=== PATIENT | male | born 1995 | race African-American/Black ===

== ENCOUNTER 2017-10-15 08:40 | Emergency (ER) | payer SELFPAY ==
[2017-10-15] MEDS ORDERED: Albuterol/Ipratropium 3.0-0.5 MG/3 ML Neb Soln ONE (09:01)
[2017-10-15] MEDS ORDERED: Albuterol/Ipratropium 3.0-0.5 MG/3 ML Neb Soln NEB ONE (09:03)
[2017-10-15] MEDS ORDERED: methylPREDNISolone Sodium Succinate 125 MG/2 ML SDV IM ONE (09:03)
--- NOTE | 2017-10-15 09:13 | EDM.PDOC ---
ED HPI GENERAL MEDICAL PROBLEM - General Chief Complaint: Asthma Stated Complaint: ASTHMA ATTACK Time Seen by Provider: 10/15/17 09:03 Source of Information: Reports: Patient, RN Notes Reviewed History Limitations: Reports: No Limitations - History of Present Illness INITIAL COMMENTS - FREE TEXT/NARRATIVE: 22-year-old gentleman presents to the emergency department today complaint of difficulty breathing, he has a known history of asthma however he has not used his inhaler for a couple of days he is up here working this morning he awoke feeling very short of breath and wheezing Chest Pain Score (Numeric/FACES): 8 - Related Data Allergies Allergy/AdvReac Type Severity Reaction Status Date / Time No Known Allergies Allergy Verified 10/15/17 08:55 Home Meds: Home Meds Albuterol [Ventolin HFA] 1 puff INH ASDIRECTED 10/15/17 [History] Past Medical History Respiratory History: Reports: Asthma Social & Family History - Tobacco Use Smoking Status *Q: Never Smoker - Recreational Drug Use Recreational Drug Use: No ED ROS GENERAL - Review of Systems Review Of Systems: See Below Constitutional: Reports: No Symptoms HEENT: Reports: No Symptoms Respiratory: Reports: Shortness of Breath, Wheezing Cardiovascular: Reports: No Symptoms GI/Abdominal: Reports: No Symptoms ED EXAM, GENERAL - Physical Exam Exam: See Below Exam Limited By: No Limitations General Appearance: Alert, Mild Distress Head: Atraumatic, Normocephalic Neck: Normal Inspection, Supple, Non-Tender, Full Range of Motion Respiratory/Chest: Respiratory Distress (Tripoding), Wheezing, Accessory Muscle Use, Retractions Cardiovascular: No Murmur, Tachycardia Course - Vital Signs Last Recorded V/S: Last Vital Signs Temp 94.6 F L 10/15/17 08:54 Pulse 97 10/15/17 09:19 Resp 22 H 10/15/17 08:54 BP 140/79 10/15/17 08:54 Pulse Ox 95 10/15/17 09:19 - Orders/Labs/Meds Orders: Active Orders 24 hr Category Date Time Status RT Aerosol Therapy [RC] ASDIRECTED Care 10/15/17 09:03 Active Meds: Medications Discontinued Medications Generic Name Dose Route Start Last Admin Trade Name Freq PRN Reason Stop Dose Admin Albuterol/Ipratropium 3 ml 10/15/17 09:03 08/17/18 09:02 Duoneb 3.0-0.5 Mg/3 Ml NEB 10/15/17 09:04 3 ml ONETIME ONE Administration Albuterol/Ipratropium Confirm 10/15/17 09:01 10/15/17 09:05 Duoneb 3.0-0.5 Mg/3 Ml Administered 10/15/17 09:02 Not Given Dose 3 ml .ROUTE .STK-MED ONE Methylprednisolone Sodium Succinate 125 mg 10/15/17 09:03 10/15/17 09:16 Solu-Medrol IM 10/15/17 09:04 125 mg ONETIME ONE Administration Departure - Departure Time of Disposition: 09:36 Disposition: Home, Self-Care 01 Condition: Good Clinical Impression: Mild intermittent asthma with exacerbation - Discharge Information Referrals: PCP,None [Primary Care Provider] - Forms: ED Department Discharge Additional Instructions: Take full course of prednisone start tomorrow, continue to use your albuterol inhaler as needed every 2-4 hours follow-up primary care upon return home - My Orders Last 24 Hours: My Active Orders 10/15/17 09:03 RT Aerosol Therapy [RC] ASDIRECTED - Assessment/Plan Last 24 Hours: My Active Orders 10/15/17 09:03 RT Aerosol Therapy [RC] ASDIRECTED Plan: Assessment Acuity = acute Site and laterality = mild intermittent asthma exacerbation Etiology = unknown etiology Manifestations = wheezing Location of injury = Home Lab values = none Plan He had good improvement with Solu-Medrol and DuoNeb provided in emergency Department discharge home on prednisone 20 mg once a day for 5 days refill of his albuterol inhaler 1-2 puffs every 4 hours when necessary he will follow-up with his primary care upon return home This note was dictated using [employer] voice recognition software please call with any questions on syntax or grammar.
== END 2017-10-15 10:16 | disposition home or self-care (01) ==
LOC: JP.ED 08:40
DX: J45.901 Unspecified asthma with (acute) exacerbation (principal); Z79.899 Other long term (current) drug therapy
CPT/HCPCS: 94640; 96372; 99284; J2930; J7620-GY